=== PATIENT | male | born 1940 | race Asian ===

== ENCOUNTER 2019-09-17 12:57 | Inpatient (IN) | payer MEDICARE, MEDICAID ==
[~2019-09-17] VITALS: Ht 170.2 cm; Wt 59.8 kg
[2019-09-17 13:00] VITALS: BP 142/78
--- NOTE | 2019-09-17 13:00 | NUR ---
ED Nurse Note: Patient EMILIANO from [employer] d/t having episode of diarrhea while eating. Patient has 10/10 cramping abdominal pain. Patient denies nausea. Patient AxO x 4, no s/s of acute distress. Patient on the compounder sterile products, blood and urine sent to lab, 20 g IV started in left AC.
[2019-09-17] MEDS ORDERED: Ketorolac 30mg Inj IV ONE (13:15)
[2019-09-17] MEDS ORDERED: Omnipaque-300 100ml vial INJ PRN (13:30)
--- NOTE | 2019-09-17 13:41 | Emergency Room Report ---
History of Present Illness General Chief Complaint: Abdominal Pain Source: Patient (Markie Castillo DO) Present Illness HPI Patient presents with complaints of mid and lower abdominal pain Patient denies any vomiting however he has had diarrhea over the past 2 days denies any chest pain or shortness of breath Denies any flank pain We talked with the patient using 1 of the female German nurses Patient is only German speaking Denies any fall or trauma denies any fevers or chills Denies any recent travel (Markie Castillo DO) Allergies: Coded Allergies: No Known Allergies (Unverified , 09/17/19) Patient History Past Medical History: see triage record Reviewed Nursing Documentation: PMH: Agreed; PSxH: Agreed (Markie Castillo DO) Nursing Documentation-PMH Hx Hypertension: Yes Hx Diabetes: Yes (Markie Castillo DO) Review of Systems All Other Systems: negative except mentioned in HPI (Markie Castillo DO) Physical Exam Vital Signs Date Time Temp Pulse Resp B/P (MAP) Pulse Ox O2 Delivery O2 Flow Rate FiO2 09/17/19 12:56 97.5 54 17 142/78 (99) 99 Room Air Sp02 EP Interpretation: reviewed, normal General Appearance: thin Head: normocephalic, atraumatic Eyes: bilateral eye PERRL, bilateral eye EOMI ENT: dry mucus membranes Neck: supple Respiratory: lungs clear, no respiratory distress, no retraction Cardiovascular #1: regular rate, rhythm, no edema, no murmur Gastrointestinal: non tender - On palpation however points to the mid abdominal umbilical region for pain, soft Musculoskeletal: normal inspection Neurologic: alert, oriented x3 Skin: no rash Lymphatic: normal inspection (Markie Castillo DO) Medical Decision Making Diagnostic Impression: Primary Impression: Colitis Additional Impression: Weakness ER Course Hospital Course 79 yo M presents with abd pain, diarhea Clinical course Patient initially seen by ; please see his note for full history and physical Labs - leukocytosis noted, Hb/Hct stable. electrolytes ok. CT A/P - colitis appreciated Patient continues to have pain, diarrhea, vomiting. Given Cipro and Flagyl here in ED. Will require admission Case discussed with Dr. Campbell and he agreed to accept the patient to his service for further care and support I feel this is a highly complex case requiring extensive working including EKG/ Rhythm strip, Xray/CT/US, Blood/urine lab work, repeat exams while in ED, and administration of strong opiates/narcotics for pain control, admission to hospital or close patient follow up. Diagnosis - colitis, weakness Patient admitted to hospital in serious condition Labs Test 09/17/19 14:00 09/17/19 15:30 White Blood Count 13.0 K/UL (4.8-10.8) Red Blood Count 4.74 M/UL (4.70-6.10) Hemoglobin 15.3 G/DL (14.2-18.0) Hematocrit 45.0 % (42.0-52.0) Mean Corpuscular Volume 95 FL (80-99) Mean Corpuscular Hemoglobin 32.3 PG (27.0-31.0) Mean Corpuscular Hemoglobin Concent 34.1 G/DL (32.0-36.0) Red Cell Distribution Width 11.1 % (11.6-14.8) Platelet Count 362 K/UL (150-450) Mean Platelet Volume 8.2 FL (6.5-10.1) Neutrophils (%) (Auto) % (45.0-75.0) Lymphocytes (%) (Auto) % (20.0-45.0) Monocytes (%) (Auto) % (1.0-10.0) Eosinophils (%) (Auto) % (0.0-3.0) Basophils (%) (Auto) % (0.0-2.0) Differential Total Cells Counted 100 Neutrophils % (Manual) 93 % (45-75) Lymphocytes % (Manual) 3 % (20-45) Monocytes % (Manual) 4 % (1-10) Eosinophils % (Manual) 0 % (0-3) Basophils % (Manual) 0 % (0-2) Band Neutrophils 0 % (0-8) Platelet Estimate Adequate Platelet Morphology Normal Clumped Platelets 2+ Red Blood Cell Morphology Normal Prothrombin Time 10.2 SEC (9.30-11.50) Prothromb Time International Ratio 1.0 (0.9-1.1) Activated Partial Thromboplast Time 24 SEC (23-33) Sodium Level 139 MMOL/L (136-145) Potassium Level 3.7 MMOL/L (3.5-5.1) Chloride Level 102 MMOL/L (98-107) Carbon Dioxide Level 26 MMOL/L (21-32) Anion Gap 11 mmol/L (5-15) Blood Urea Nitrogen 36 mg/dL (7-18) Creatinine 1.1 MG/DL (0.55-1.30) Estimat Glomerular Filtration Rate > 60 mL/min (>60) Glucose Level 217 MG/DL (74-106) Calcium Level 9.9 MG/DL (8.5-10.1) Total Bilirubin 0.4 MG/DL (0.2-1.0) Aspartate Amino Transf (AST/SGOT) 17 U/L (15-37) Alanine Aminotransferase (ALT/SGPT) 27 U/L (12-78) Alkaline Phosphatase 107 U/L (46-116) Total Creatine Kinase 71 U/L (26-308) Troponin I 0.000 ng/mL (0.000-0.056) Total Protein 8.9 G/DL (6.4-8.2) Albumin 4.2 G/DL (3.4-5.0) Globulin 4.7 g/dL Albumin/Globulin Ratio 0.9 (1.0-2.7) Lipase 214 U/L (73-393) Urine Color Yellow Urine Appearance Clear Urine pH 5 (4.5-8.0) Urine Specific [place] 1.020 (1.005-1.035) Urine Protein 1+ (NEGATIVE) Urine Glucose (UA) Negative (NEGATIVE) Urine Ketones 2+ (NEGATIVE) Urine Blood 5+ (NEGATIVE) Urine Nitrite Negative (NEGATIVE) Urine Bilirubin Negative (NEGATIVE) Urine Urobilinogen Normal MG/DL (0.0-1.0) Urine Leukocyte Esterase Negative (NEGATIVE) Urine RBC 20-30 /HPF (0 - 0) Urine WBC 0-2 /HPF (0 - 0) Urine Squamous Epithelial Cells None /LPF (NONE/OCC) Urine Bacteria Occasional /HPF (NONE) (Eliezer Genao MD) CT/MRI/US Diagnostic Results CT/MRI/US Diagnostic Results : Imaging Test Ordered: CT A/P Impression Comparison: none Findings: Lack of enteric contrast limits assessment of the GI tract. There is equivocal mild wall thickening of the descending and sigmoid colon and equivocal slight increased attenuation of the immediate pericolonic fat. There is slightly increased attenuation of the presacral fat. No evidence of colonic diverticulosis or diverticulitis. The appendix is normal. No small bowel distention. No free or loculated intraperitoneal gas or fluid is evident. The distal esophagus, stomach , duodenum are unremarkable. The liver demonstrates a subcentimeter low-attenuation lesion at the tip of the right hepatic lobe. There are a few other similar lesions near the dome. The gallbladder is nondistended, unremarkable. The bile ducts are unremarkable. The pancreas, spleen, adrenals are unremarkable. The kidneys demonstrate bilateral subcentimeter low-attenuation lesions which are too small to characterize. The left kidney demonstrates a lower pole punctate calyceal calculus. There is a circumaortic left renal vein incidentally noted. No retroperitoneal or mesenteric mass or adenopathy. No pelvic mass or adenopathy. The bladder is somewhat distended. The included lung bases demonstrate minimal dependent atelectatic changes. The bones demonstrate degenerative spondylosis changes. Impression: Limited assessment of the GI tract, due to lack of enteric contrast administration Equivocal mild descending and sigmoid colon wall thickening and equivocal minimal infiltration of the pericolonic fat; if real could indicate mild colitis changes. No definite acute process otherwise Subcentimeter low-attenuation liver and renal lesions, too small to characterize , most likely benign simple cysts. No further follow-up necessary Other findings as noted, including circumaortic left renal vein, dependent pulmonary atelectatic changes, degenerative spondylosis The CT scanner at [facility] is accredited by the [employer] and the scans are performed using protocols designed to limit radiation exposure to as low as reasonably achievable to attain images of sufficient resolution adequate for diagnostic evaluation. (Eliezer Genao MD) Last Vital Signs Date Time Temp Pulse Resp B/P (MAP) Pulse Ox O2 Delivery O2 Flow Rate FiO2 09/17/19 12:56 97.5 54 17 142/78 (99) 99 Room Air (Markie Castillo DO) Status: improved (Eliezer Genao MD) Disposition: ADMITTED INPATIENT Condition: Serious Markie Castillo DO Sep 17, 2019 13:41 Eliezer Genao MD Sep 17, 2019 17:39
[2019-09-17 14:52] LABS: HEMOGLOBIN 15.3 G/DL (14.2-18.0); MEAN CORPUSCULAR VOLUME 95 FL (80-99); PLATELET COUNT 362 K/UL (150-450); RED BLOOD COUNT 4.74 M/UL (4.70-6.10); RED CELL DISTRIBUTION WIDTH 11.1 % (11.6-14.8)
[2019-09-17 15:02] LABS: ANION GAP 11 mmol/L (5-15); BLOOD UREA NITROGEN 36 mg/dL (7-18); CALCIUM 9.9 MG/DL (8.5-10.1); CARBON DIOXIDE 26 MMOL/L (21-32); CHLORIDE 102 MMOL/L (98-107); CREATININE 1.1 MG/DL (0.55-1.30); POTASSIUM 3.7 MMOL/L (3.5-5.1); SODIUM 139 MMOL/L (136-145)
[2019-09-17 15:10] LABS: ALANINE AMINOTRANSFERASE 27 U/L (12-78); ALBUMIN 4.2 G/DL (3.4-5.0); ALBUMIN/GLOBULIN RATIO 0.9 (1.0-2.7); ALKALINE PHOSPHATASE 107 U/L (46-116); ASPARTATE AMINO TRANSFERASE 17 U/L (15-37); BILIRUBIN,TOTAL 0.4 MG/DL (0.2-1.0); CREATINE KINASE 71 U/L (26-308)
[2019-09-17 15:50] LABS: APPEARANCE,URINE CLEAR; BILIRUBIN, URINE NEGATIVE (NEGATIVE); COLOR,URINE YELLOW; GLUCOSE, URINE (UA) NEGATIVE (NEGATIVE); KETONES,URINE 2+ (NEGATIVE); LEUKOCYTE ESTERASE ,URINE NEGATIVE (NEGATIVE); NITRITE,URINE NEGATIVE (NEGATIVE); PH,URINE 5 (4.5-8.0); PROTEIN,URINE 1+ (NEGATIVE); UROBILINOGEN,URINE NORMAL MG/DL (0.0-1.0)
[2019-09-17] MEDS ORDERED: Morphine Sulfate 2mg/ml Inj(IV/IM USE ONLY) IVP ONE (16:00)
[2019-09-17] MEDS ORDERED: Pantoprazole Inj IVP ONE (16:00)
--- NOTE | 2019-09-17 16:20 | NUR ---
ED Nurse Note: Patient resting in bed, diarrhea has become less severe. Patient states his abdomen feels less painful than when he arrived.
[2019-09-17 17:07] VITALS: BP 138/82
--- NOTE | 2019-09-17 17:26 | Diagnostic Imaging Report ---
Clinical Indication: Abdominal pain Technique: No oral contrast utilized, per emergency room physician request IV administration nonionic contrast. Venous phase spiral acquisition obtained through the abdomen and pelvis. Multiplanar reconstructions were generated. Total dose length product 757 mGycm. CTDIvol(s) 13 mGy. Dose reduction achieved using automated exposure control Comparison: none Findings: Lack of enteric contrast limits assessment of the GI tract. There is equivocal mild wall thickening of the descending and sigmoid colon and equivocal slight increased attenuation of the immediate pericolonic fat. There is slightly increased attenuation of the presacral fat. No evidence of colonic diverticulosis or diverticulitis. The appendix is normal. No small bowel distention. No free or loculated intraperitoneal gas or fluid is evident. The distal esophagus, stomach, duodenum are unremarkable. The liver demonstrates a subcentimeter low-attenuation lesion at the tip of the right hepatic lobe. There are a few other similar lesions near the dome. The gallbladder is nondistended, unremarkable. The bile ducts are unremarkable. The pancreas, spleen, adrenals are unremarkable. The kidneys demonstrate bilateral subcentimeter low-attenuation lesions which are too small to characterize. The left kidney demonstrates a lower pole punctate calyceal calculus. There is a circumaortic left renal vein incidentally noted. No retroperitoneal or mesenteric mass or adenopathy. No pelvic mass or adenopathy. The bladder is somewhat distended. The included lung bases demonstrate minimal dependent atelectatic changes. The bones demonstrate degenerative spondylosis changes. Impression: Limited assessment of the GI tract, due to lack of enteric contrast administration Equivocal mild descending and sigmoid colon wall thickening and equivocal minimal infiltration of the pericolonic fat; if real could indicate mild colitis changes. No definite acute process otherwise Subcentimeter low-attenuation liver and renal lesions, too small to characterize, most likely benign simple cysts. No further follow-up necessary Other findings as noted, including circumaortic left renal vein, dependent pulmonary atelectatic changes, degenerative spondylosis The CT scanner at [facility] is accredited by the [employer] and the scans are performed using protocols designed to limit radiation exposure to as low as reasonably achievable to attain images of sufficient resolution adequate for diagnostic evaluation.
--- NOTE | 2019-09-17 19:13 | NUR ---
ED Nurse Note: Handoff report given to Haley MONTEZ
[2019-09-17 19:15] VITALS: BP 140/64
--- NOTE | 2019-09-17 19:15 | NUR ---
ED Nurse Note: Report received from TC Caldwell. Pt is resting in bed at this time. No acute distress noted. VSS. Awaiting on nurse to give report and will take pt to unit. Will continue to monitor.
--- NOTE | 2019-09-17 21:08 | General Progress Note ---
Assessment/Plan Assessment/Plan: Assessment - Acute diarrhea - CT suggestive of (L) sided colitis - lower abd pain - elevated glucose - hematuria Recommendations - clear liquid diet - IV hydration - IV Cipro / Flagyl - complete stool evaluation, including C Diff - follow lab and exam Thank you Nitza Christian MD Subjective Allergies: Coded Allergies: No Known Allergies (Unverified , 09/17/19) Objective Last 24 Hour Vital Signs Date Time Temp Pulse Resp B/P (MAP) Pulse Ox O2 Delivery O2 Flow Rate FiO2 09/17/19 17:07 97.8 61 18 138/82 99 Room Air 09/17/19 16:30 97.8 09/17/19 13:00 97.5 54 17 142/78 99 Room Air 09/17/19 13:00 54 17 Room Air 09/17/19 12:56 97.5 54 17 142/78 (99) 99 Room Air Laboratory Tests 09/17/19 14:00: White Blood Count 13.0H, Red Blood Count 4.74, Hemoglobin 15.3, Hematocrit 45.0 , Mean Corpuscular Volume 95, Mean Corpuscular Hemoglobin 32.3H, Mean Corpuscular Hemoglobin Concent 34.1, Red Cell Distribution Width 11.1L, Platelet Count 362, Mean Platelet Volume 8.2, Neutrophils (%) (Auto) , Lymphocytes (%) (Auto) , Monocytes (%) (Auto) , Eosinophils (%) (Auto) , Basophils (%) (Auto) , Differential Total Cells Counted 100, Neutrophils % ( Manual) 93H, Lymphocytes % (Manual) 3L, Monocytes % (Manual) 4, Eosinophils % ( Manual) 0, Basophils % (Manual) 0, Band Neutrophils 0, Platelet Estimate Adequate, Platelet Morphology Normal, Clumped Platelets 2+, Red Blood Cell Morphology Normal, Prothrombin Time 10.2, Prothromb Time International Ratio 1.0 , Activated Partial Thromboplast Time 24, Sodium Level 139, Potassium Level 3.7 , Chloride Level 102, Carbon Dioxide Level 26, Anion Gap 11, Blood Urea Nitrogen 36H, Creatinine 1.1, Estimat Glomerular Filtration Rate > 60, Glucose Level 217H, Calcium Level 9.9, Total Bilirubin 0.4, Aspartate Amino Transf (AST/ SGOT) 17, Alanine Aminotransferase (ALT/SGPT) 27, Alkaline Phosphatase 107, Total Creatine Kinase 71, Troponin I 0.000, Total Protein 8.9H, Albumin 4.2, Globulin 4.7, Albumin/Globulin Ratio 0.9L, Lipase 214 09/17/19 15:30: Urine Color Yellow, Urine Appearance Clear, Urine pH 5, Urine Specific [place] 1.020, Urine Protein 1+H, Urine Glucose (UA) Negative, Urine Ketones 2+H, Urine Blood 5+H, Urine Nitrite Negative, Urine Bilirubin Negative, Urine Urobilinogen Normal, Urine Leukocyte Esterase Negative, Urine RBC 20-30H, Urine WBC 0-2, Urine Squamous Epithelial Cells None, Urine Bacteria Occasional Height (Feet): 5 Height (Inches): 7.00 Weight (Pounds): 150 Nitza Christian MD Sep 17, 2019 21:08
--- NOTE | 2019-09-17 21:15 | NUR ---
ED Nurse Note: Report given to TC Corona.
[2019-09-17 21:45] VITALS: BP 143/75
--- NOTE | 2019-09-17 21:50 | NUR ---
NURSE NOTES: Patient arrive on the unit from ER. Patient a/a/o x 4, speaking Estonian. Breathing unlabored on room air without distress. Verbalizes pain on the abdomen but refuses pain medication at this time. IV noted on right antecubital intact, dry, clean, and patent. Skin intact. Bed placed at the lowest with alarm, brake, and siderails up for safety. Call light placed within reach. Will continue to monitor and provide care as ordered.
--- NOTE | 2019-09-17 21:50 | NUR ---
ED Nurse Note: Pt is stable to transfer to MS unit at this time. Pt taken to unit via wheelchair by tech. Pt is in no acute distress, aaox4, ambulatory with steady gait. VSS. Pt belongings sent with pt. IV patent and intact.
--- NOTE | 2019-09-17 22:45 | NUR ---
NURSE NOTES: Received admission orders from Dr. Campbell. Orders are as followed: Discontinue all home medications, NPO except ice chips/medications, SCDs for DVT prophylaxis, Code according to what patient prefers, CBC, CMP, Consult Dr Christian and Joshua Hayes, Zofran 4mg IVP Q 6H PRN for Nausea and Vomiting, 1/2 NS @ 60mls/hr, and Tylenol 650mg PO Q4H PRN for Mild pain/ temperature above 100.5 F. Will carry out as given.
[2019-09-17] MEDS ORDERED: Morphine Sulfate 2mg/ml Inj(IV/IM USE ONLY) IVP PRN (23:15)
--- NOTE | 2019-09-17 23:15 | NUR ---
NURSE NOTES: Informed Dr. Christian regarding patient's abdominal pain. Received order for morphine 2 mg IVP Q3H PRN for pain. Will carry out the order as given. Will continue to monitor the patient.
--- NOTE | 2019-09-17 23:30 | NUR ---
NURSE NOTES: Informed and educated patient regarding pain management, but patient refuses to take pain medication at this time. Patient said pain 5-6/10 but not extreme. Patient wants to hold on the pain medication and prefers to rest at this time. Will continue to monitor and provide nonpharmacological method to assist with pain.
[2019-09-18] VITALS: BP 147/76
[2019-09-18 04:00] VITALS: BP 149/70
[2019-09-18] MEDS: NovoLOG Insulin Flexpen SUBQ SCH ×4 (06:00→21:00)
--- NOTE | 2019-09-18 07:00 | NUR ---
NURSE NOTES: Patient bleeding moderate amount of blood from the rectum whenever patient feels the urge to have bowel movement. Patient denies lightheadness, nausea, or shortness of breath. Blood pressure within patient's baseline per patient. Reached Dr. Christian regarding patient's bleeding episode from the rectum. Left a message. Will follow up and endorse to dayshift.
[2019-09-18 07:13] LABS: BASOPHILS % (AUTO) 0.4 % (0.0-2.0); EOSINOPHILS % (AUTO) 0.7 % (0.0-3.0); HEMATOCRIT 35.8 % (42.0-52.0); HEMOGLOBIN 12.4 G/DL (14.2-18.0); LYMPHOCYTES % (AUTO) 14.8 % (20.0-45.0); MEAN CORPUSCULAR VOLUME 94 FL (80-99); MONOCYTES % (AUTO) 7.3 % (1.0-10.0); NEUTROPHILS % (AUTO) 76.8 % (45.0-75.0); PLATELET COUNT 286 K/UL (150-450); RED BLOOD COUNT 3.82 M/UL (4.70-6.10); RED CELL DISTRIBUTION WIDTH 11.1 % (11.6-14.8); WHITE BLOOD COUNT 10.4 K/UL (4.8-10.8)
[2019-09-18 07:24] LABS: ALANINE AMINOTRANSFERASE 16 U/L (12-78); ALBUMIN 3.1 G/DL (3.4-5.0); ALBUMIN/GLOBULIN RATIO 0.9 (1.0-2.7); ALKALINE PHOSPHATASE 68 U/L (46-116); ANION GAP 7 mmol/L (5-15); ASPARTATE AMINO TRANSFERASE 14 U/L (15-37); BILIRUBIN,TOTAL 0.5 MG/DL (0.2-1.0); BLOOD UREA NITROGEN 19 mg/dL (7-18); CALCIUM 8.6 MG/DL (8.5-10.1); CARBON DIOXIDE 26 MMOL/L (21-32); CHLORIDE 109 MMOL/L (98-107); CREATININE 0.9 MG/DL (0.55-1.30); POTASSIUM 4.3 MMOL/L (3.5-5.1); SODIUM 142 MMOL/L (136-145)
--- NOTE | 2019-09-18 07:38 | NUR ---
HAND-OFF: Report given to TC Leavitt. Plan of care endorsed and informed about patient's rectal bleeding.
[2019-09-18 08:00] VITALS: BP 153/76
--- NOTE | 2019-09-18 11:42 | NUR ---
NURSE NOTES: pt in bed with no sob nor in any form of distress noted. still noted with moderate amount of blood. no episode of diarrhea at this time. informed pt for stool specimen. IV fluid running with no adverse reaction noted. will continue to monitor
[2019-09-18 12:00] VITALS: BP 162/79
[2019-09-18 15:21] VITALS: BP 155/78
--- NOTE | 2019-09-18 17:22 | NUR ---
CASE MANAGEMENT:INITIAL REVIEW 79 YR OLD MALE BIBA FROM HOME CC;ABDOMINAL PAIN SI;COLITIS. WEAKNESS. 97.5 54 17 142/78 99% ON RA WBC 13.0 BUN 36 BG 217 ABD/PELVIS CT - No definite acute process IS;PEPCID IV X1 ZOFRAN IV X1 TORADOL IV X1 IVF NS BOLUS X1 ADMITTED TO MED SURG MED SURG STATUS DCP;FROM HOME
--- NOTE | 2019-09-18 19:25 | NUR ---
HAND-OFF: Report given to TC Bone.
--- NOTE | 2019-09-18 19:30 | NUR ---
NURSE NOTES: Received patient in no apparent distress. A&OX4. IV site patent and intact. Bed in lowest position. Call light within reach. Will continue to monitor.
[2019-09-18 20:00] VITALS: BP 148/74
--- NOTE | 2019-09-18 20:00 | Consultation ---
DATE OF CONSULTATION: 09/18/2019 INFECTIOUS DISEASE CONSULTATION CONSULTING PHYSICIAN: Chetan Marte M.D. PRIMARY ATTENDING PHYSICIAN: Markie Campbell M.D. REASON FOR CONSULT: Colitis. HISTORY OF PRESENT ILLNESS: This is a 79-year-old male admitted yesterday. The patient states that he has mid and lower abdominal pain for two days and it become worse yesterday when he was dining in the [place] restaurant with his friend. The patient also had diarrhea and blood in it, bloody diarrhea. At the time of admission, he had leukocytosis of 13,000. PAST MEDICAL HISTORY: Diabetes and hypertension, has history of blood in his stool before, had EGD in last November, and an operation 15 years ago. ALLERGIES: No known drug allergies. MEDICATIONS: Getting insulin, Tylenol, Zofran, got a dose of Cipro and Flagyl in the ER. SOCIAL HISTORY: . No history of alcohol, drug abuse, or smoking. REVIEW OF SYSTEMS: No fever, no chills. No significant cough. No chest pain. No nausea. No vomiting, diarrhea. Lower abdominal pain. No problem passing urine. PHYSICAL EXAMINATION: VITAL SIGNS: Temperature 97.7, pulse 63, blood pressure is 155/78. GENERAL APPEARANCE: No acute distress. HEAD AND NECK: No teeth, uses denture. No oral lesion. HEART: Normal rate. LUNGS: Clear. ABDOMEN: Flat, soft. Tender in the lower areas. EXTREMITIES: No edema. NEUROLOGIC: He is awake, alert, and oriented x3. LABORATORY AND DIAGNOSTIC DATA: WBC today is 10.4, coming down from 13.1, hemoglobin 12.4, hematocrit 35.8, and platelets is 286. Sodium 142, potassium 4.3, chloride 109, bicarbonate 26, BUN 19, creatinine 0.9, glucose is 129, at time of admission was 270. Albumin is 3.1. CT scan of the abdomen and pelvis shows mild descending and sigmoid colon wall thickening and minimal infiltration of the pericolonic fat, may indicate mild colitis. IMPRESSION: 1. Mild colitis. 2. Diabetes mellitus. 3. Hypertension. 4. GI bleeding. RECOMMENDATIONS: We will follow up with stool studies. We will continue Cipro and Flagyl. At the end of my exam, I thank, Dr. Campbell, for involving me in the care of this patient. Chetan Marte M.D. DR: FLETCHER JOB#: [id number] CC: AMBER
[2019-09-18] MEDS ORDERED: FENOFIBRATE134 M1 ORAL (20:36)
[2019-09-18] MEDS ORDERED: MECLIZINE HCL25 MG ORAL (20:36)
[2019-09-18] MEDS ORDERED: BENADRYL ALLERG25 M1 PO (20:36)
[2019-09-18] MEDS ORDERED: IMODIUM2 MG ORAL (20:36)
[2019-09-18] MEDS ORDERED: ATORVASTATIN CA40 MG ORAL (20:36)
[2019-09-18] MEDS ORDERED: CREON DR 24,001 EACH PO (20:36)
[2019-09-18] MEDS ORDERED: LISINOPRIL40 MG ORAL (20:36)
[2019-09-18] MEDS ORDERED: GLUCOPHAGE XR750 MG ORAL (20:36)
[2019-09-18] MEDS ORDERED: TRAMADOL HCL50 MG ORAL (20:36)
--- NOTE | 2019-09-18 22:00 | General Progress Note ---
Assessment/Plan Assessment/Plan: Assessment - Acute diarrhea - CT suggestive of (L) sided colitis - lower abd pain - elevated glucose - hematuria Recommendations - advance diet - IV hydration - IV Cipro / Flagyl - complete stool evaluation, including C Diff - follow lab and exam Subjective Allergies: Coded Allergies: No Known Allergies (Unverified , 09/17/19) Subjective better today pain improved no BM overnight seen with French speaking RN Objective Last 24 Hour Vital Signs Date Time Temp Pulse Resp B/P (MAP) Pulse Ox O2 Delivery O2 Flow Rate FiO2 09/18/19 15:21 97.7 63 19 155/78 (103) 98 09/18/19 12:00 98.0 62 18 162/79 (106) 97 09/18/19 09:40 Room Air 09/18/19 08:00 97.8 53 18 153/76 (101) 96 09/18/19 04:00 97.6 58 16 149/70 (96) 96 09/18/19 00:00 98.0 59 16 147/76 (99) 97 09/17/19 22:18 Room Air Intake and Output 09/17/19 09/18/19 19:00 07:00 Intake Total 420 ml Output Total 2 ml Balance 418 ml Intake Oral 0 ml IV Total 420 ml Output Urine Total 2 ml # Voids 1 Laboratory Tests 09/18/19 05:55: White Blood Count 10.4, Red Blood Count 3.82L, Hemoglobin 12.4L, Hematocrit 35.8L, Mean Corpuscular Volume 94, Mean Corpuscular Hemoglobin 32.4H, Mean Corpuscular Hemoglobin Concent 34.7, Red Cell Distribution Width 11.1L, Platelet Count 286, Mean Platelet Volume 7.8, Neutrophils (%) (Auto) 76.8H, Lymphocytes (%) (Auto) 14.8L, Monocytes (%) (Auto) 7.3, Eosinophils (%) (Auto) 0.7, Basophils (%) (Auto) 0.4, Sodium Level 142, Potassium Level 4.3, Chloride Level 109H, Carbon Dioxide Level 26, Anion Gap 7, Blood Urea Nitrogen 19H, Creatinine 0.9, Estimat Glomerular Filtration Rate > 60, Glucose Level 129H, Calcium Level 8.6, Total Bilirubin 0.5, Aspartate Amino Transf (AST/SGOT) 14L, Alanine Aminotransferase (ALT/SGPT) 16, Alkaline Phosphatase 68, Total Protein 6.7, Albumin 3.1L, Globulin 3.6, Albumin/Globulin Ratio 0.9L Height (Feet): 5 Height (Inches): 7.00 Weight (Pounds): 131 Objective Elderly man NCAT supple CTA RR abd soft ND no edema Nitza Christian MD Sep 18, 2019 22:00
[2019-09-18] MEDS: metroNIDAZOLE 500mg tab ORAL SCH (22:05)
[2019-09-18] MEDS: Ciprofloxacin 500mg tab ORAL SCH (22:05)
--- NOTE | 2019-09-18 23:15 | History and Physical Report ---
DATE OF ADMISSION: 09/17/2019 HISTORY OF PRESENT ILLNESS: The patient admitted for colitis, weakness. The patient has been having syncopal episode while he was in the restaurant. Reports that he was having indigestion, but had actual syncopal episode in the bathroom. The patient also been having rectal bleeding and diarrhea. The patient has history of rectal cancer, status post surgery removal in the past. The patient also has history of peptic ulcer disease. The patient admitted for colitis. CT showed colitis. PAST MEDICAL HISTORY: Significant for hyperlipidemia, hypertension, NIDDM, peptic ulcer disease. PAST SURGICAL HISTORY: Status post removal of rectal cancer. ALLERGIES: No known allergies. FAMILY HISTORY: Noncontributory. MEDICATIONS: Lisinopril, , metformin, and tramadol p.r.n. SOCIAL HISTORY: Denies history of smoking, alcohol, or illicit drugs. REVIEW OF SYSTEMS: HEENT: Denies headaches. PULMONARY: Denies shortness of breath. Denies cough. CARDIOVASCULAR: Denies chest pain. No orthopnea. GASTROINTESTINAL: Reports indigestion, rectal bleeding, and diarrhea. Denies vomiting. EXTREMITIES: Denies pain in lower extremities. CENTRAL NERVOUS SYSTEM: Denies change in speech pattern. Feels weak. PHYSICAL EXAMINATION: VITAL SIGNS: Temperature is 98, pulse is 59, blood pressure is 147/76. HEENT: PERRLA. NECK: Supple. No lymphadenopathy. CHEST: Clear to auscultation. CARDIOVASCULAR: Regular rate and rhythm. ABDOMEN: Mildly distended. Mildly tender. No rebound. The patient is not in acute distress. Positive bowel sounds. No organomegaly. EXTREMITIES: No edema. Moves all four extremities. Sensory intact to light touch. Reflexes equal on both sides. LABORATORY DATA: WBC of 13, hemoglobin 15.3, platelets 262. Sodium 139, potassium 3.7, BUN of 36, creatinine 1.1. ASSESSMENT AND PLAN: Colitis, syncope, rectal bleeding, most likely due to colitis. I have consulted basically Dr. Chetan Marte and Dr. Christian for the management of the colitis. Antibiotics per Dr. Chetan Marte. Markie Campbell M.D. DR: APRIL JOB#: [id number] CC:
[2019-09-19] VITALS: BP 144/83
[2019-09-19 04:00] VITALS: BP 144/74
[2019-09-19] MEDS: metroNIDAZOLE 500mg tab ORAL SCH ×3 (06:04→21:33)
[2019-09-19] MEDS: NovoLOG Insulin Flexpen SUBQ SCH ×4 (06:27→21:31)
--- NOTE | 2019-09-19 07:14 | NUR ---
HAND-OFF: Report given to Vashti Gray RN.
--- NOTE | 2019-09-19 07:46 | NUR ---
NURSE NOTES: pt in bed with no sob nor in any form of distress noted. Breathing regular and unlabored. denies any pain at this time. on iv fluid with no adverse reaction noted. Will continue to monitor
[2019-09-19 08:00] VITALS: BP 141/74
[2019-09-19] MEDS: Ciprofloxacin 500mg tab ORAL SCH ×2 (08:41→21:30)
[2019-09-19 12:00] VITALS: BP 137/76
--- NOTE | 2019-09-19 13:48 | Infectious Diseases Prog Note ---
Assessment/Plan Assessment/Plan IMPRESSION: 1. Mild colitis. 2. Diabetes mellitus. 3. Hypertension. 4. GI bleeding. RECOMMENDATIONS: We will follow up with stool studies. We will continue Cipro and Flagyl. Subjective ROS Limited/Unobtainable: Yes Constitutional: Reports: no symptoms Respiratory: Reports: no symptoms Gastrointestinal/Abdominal: Reports: no symptoms Genitourinary: Reports: no symptoms Allergies: Coded Allergies: No Known Allergies (Unverified , 09/17/19) Objective Vital Signs Last 24 Hour Vital Signs Date Time Temp Pulse Resp B/P (MAP) Pulse Ox O2 Delivery O2 Flow Rate FiO2 09/19/19 09:53 Room Air 09/19/19 08:00 97.6 64 18 141/74 (96) 97 09/19/19 04:00 97.4 56 18 144/74 (97) 97 09/19/19 00:00 98.6 60 18 144/83 (103) 100 09/18/19 21:00 Room Air 09/18/19 20:00 97.4 56 19 148/74 (98) 96 09/18/19 15:21 97.7 63 19 155/78 (103) 98 Height (Feet): 5 Height (Inches): 7.00 Weight (Pounds): 131 General Appearance: no acute distress HEENT: mucous membranes moist Respiratory/Chest: lungs clear Cardiovascular: normal rate Abdomen: soft, non tender Extremities: no edema Neurologic/Psychiatric: alert, responsive Current Medications Medications (Trade) Dose Ordered Sig/Anne Route PRN Reason Start Time Stop Time Status Last Admin Dose Admin Acetaminophen (Tylenol) 650 mg Q4H PRN ORAL Mild Pain/Temp > 100.5 09/17/19 23:00 10/17/19 22:59 Ciprofloxacin (Cipro 500mg tab) 500 mg EVERY 12 HOURS ORAL 09/18/19 21:00 09/25/19 20:59 09/19/19 08:41 Dextrose (Dextrose 50%) 25 ml Q30M PRN IV Hypoglycemia 09/18/19 00:15 10/18/19 00:14 Dextrose (Dextrose 50%) 50 ml Q30M PRN IV Hypoglycemia 09/18/19 00:15 10/18/19 00:14 Insulin Aspart (NovoLOG) BEFORE MEALS AND HS SUBQ 09/18/19 06:30 10/18/19 06:29 09/19/19 13:17 Metronidazole (Flagyl) 500 mg Q8HR ORAL 09/18/19 22:00 09/25/19 21:59 09/19/19 13:15 Morphine Sulfate (Morphine Sulfate) 2 mg Q3H PRN IVP For Pain 09/17/19 23:15 09/24/19 23:14 Ondansetron HCl (Zofran) 4 mg Q6H PRN IVP Nausea & Vomiting 09/18/19 03:00 10/18/19 02:59 Sodium Chloride 1,000 ml @ 60 mls/hr [id number] IV 09/17/19 23:00 10/17/19 22:59 09/19/19 08:41 Chetan Marte MD Sep 19, 2019 13:48
--- NOTE | 2019-09-19 14:19 | NUR ---
DISCHARGE BARRIERS: PATIENT IS DISCHARGE BACK TO [facility] STATED PATIENT NEEDS A PICC LINE TO CONT IV ABX FOR [address] HUNTER WAITING FOR RESPONSE
[2019-09-19 16:00] VITALS: BP 141/77
--- NOTE | 2019-09-19 19:36 | NUR ---
HAND-OFF: Report given to TC Bone.
--- NOTE | 2019-09-19 19:37 | NUR ---
NURSE NOTES: Received patient in no apparent distress. A&OX4. IV site patent and intact. Per patient, no more rectal bleeding. Bed in lowest position. Call light within reach. Will continue to monitor.
[2019-09-19 20:00] VITALS: BP 169/87
--- NOTE | 2019-09-19 20:54 | NUR ---
NURSE NOTES: Call and left message to Dr. Campbell regarding BP 169/87. Waiting a call back.
--- NOTE | 2019-09-19 21:08 | General Progress Note ---
Assessment/Plan Problem List: (1) Weakness ICD Codes: R53.1 - Weakness SNOMED: 31099134 (2) Colitis ICD Codes: K52.9 - Noninfective gastroenteritis and colitis, unspecified SNOMED: 31781174 Status: progressing Assessment/Plan: afebrile colitis decrease in abdominal pain no diarrhea Subjective ROS Limited/Unobtainable: Yes Allergies: Coded Allergies: No Known Allergies (Unverified , 09/17/19) Objective Last 24 Hour Vital Signs Date Time Temp Pulse Resp B/P (MAP) Pulse Ox O2 Delivery O2 Flow Rate FiO2 09/19/19 20:00 97.9 63 20 169/87 (114) 98 09/19/19 16:00 97.7 59 18 141/77 (98) 100 09/19/19 12:00 97.9 61 18 137/76 (96) 97 09/19/19 09:53 Room Air 09/19/19 08:00 97.6 64 18 141/74 (96) 97 09/19/19 04:00 97.4 56 18 144/74 (97) 97 09/19/19 00:00 98.6 60 18 144/83 (103) 100 Intake and Output 09/18/19 09/19/19 19:00 07:00 Intake Total 1170 ml 660 ml Output Total 4 ml 480 ml Balance 1166 ml 180 ml Intake Oral 450 ml IV Total 720 ml 660 ml Output Urine Total 4 ml 480 ml # Voids 2 Height (Feet): 5 Height (Inches): 7.00 Weight (Pounds): 131 Cardiovascular: regular rhythm Respiratory/Chest: lungs clear Abdomen: soft Markie Campbell MD Sep 19, 2019 21:08
--- NOTE | 2019-09-19 21:49 | General Progress Note ---
Assessment/Plan Status: progressing Assessment/Plan: Assessment - Acute diarrhea - CT suggestive of (L) sided colitis - lower abd pain - elevated glucose - hematuria Recommendations - advance diet - IV hydration - IV Cipro / Flagyl - complete stool evaluation, including C Diff - follow lab and exam Subjective Allergies: Coded Allergies: No Known Allergies (Unverified , 09/17/19) Subjective better today pain improved no BM overnight Objective Last 24 Hour Vital Signs Date Time Temp Pulse Resp B/P (MAP) Pulse Ox O2 Delivery O2 Flow Rate FiO2 09/19/19 20:00 97.9 63 20 169/87 (114) 98 09/19/19 16:00 97.7 59 18 141/77 (98) 100 09/19/19 12:00 97.9 61 18 137/76 (96) 97 09/19/19 09:53 Room Air 09/19/19 08:00 97.6 64 18 141/74 (96) 97 09/19/19 04:00 97.4 56 18 144/74 (97) 97 09/19/19 00:00 98.6 60 18 144/83 (103) 100 Intake and Output 09/18/19 09/19/19 19:00 07:00 Intake Total 1170 ml 660 ml Output Total 4 ml 480 ml Balance 1166 ml 180 ml Intake Oral 450 ml IV Total 720 ml 660 ml Output Urine Total 4 ml 480 ml # Voids 2 Height (Feet): 5 Height (Inches): 7.00 Weight (Pounds): 131 Objective Elderly man NCAT supple CTA RR abd soft ND no edema Nitza Christian MD Sep 19, 2019 21:49
--- NOTE | 2019-09-19 22:06 | NUR ---
NURSE NOTES: Obtained Novasc 5mg oral daily order from Dr. Campbell.
[2019-09-20] VITALS: BP 137/66
[2019-09-20 04:00] VITALS: BP 139/76
[2019-09-20] MEDS: metroNIDAZOLE 500mg tab ORAL SCH ×3 (06:07→21:10)
[2019-09-20] MEDS: NovoLOG Insulin Flexpen SUBQ SCH ×4 (06:07→21:11)
--- NOTE | 2019-09-20 07:30 | NUR ---
HAND-OFF: Report given to Mary Ann MONTEZ.
[2019-09-20 08:00] VITALS: BP 161/77
[2019-09-20] MEDS: Ciprofloxacin 500mg tab ORAL SCH ×2 (09:09→21:10)
--- NOTE | 2019-09-20 10:21 | NUR ---
NURSE NOTES: Contacted Dr. Christian to ask for OB stool and C Diff toxin order, sample has been collect, stated in his note, but no order in system
--- NOTE | 2019-09-20 11:15 | Infectious Diseases Prog Note ---
Assessment/Plan Assessment/Plan IMPRESSION: 1. Mild colitis. 2. Diabetes mellitus. 3. Hypertension. 4. GI bleeding. RECOMMENDATIONS: We will continue Cipro and Flagyl until tonight Subjective ROS Limited/Unobtainable: No Constitutional: Reports: no symptoms Respiratory: Reports: no symptoms Gastrointestinal/Abdominal: Reports: no symptoms Genitourinary: Reports: no symptoms Allergies: Coded Allergies: No Known Allergies (Unverified , 09/17/19) Objective Vital Signs Last 24 Hour Vital Signs Date Time Temp Pulse Resp B/P (MAP) Pulse Ox O2 Delivery O2 Flow Rate FiO2 09/20/19 09:09 68 161/77 09/20/19 09:00 Room Air 09/20/19 08:00 98.1 68 17 161/77 (105) 100 09/20/19 04:00 98.1 56 18 139/76 (97) 97 09/20/19 00:00 97.5 65 18 137/66 (89) 96 09/19/19 21:00 Room Air 09/19/19 20:00 97.9 63 20 169/87 (114) 98 09/19/19 16:00 97.7 59 18 141/77 (98) 100 09/19/19 12:00 97.9 61 18 137/76 (96) 97 Height (Feet): 5 Height (Inches): 7.00 Weight (Pounds): 131 General Appearance: no acute distress HEENT: mucous membranes moist Respiratory/Chest: lungs clear Cardiovascular: normal rate Abdomen: soft, non tender Extremities: no edema Neurologic/Psychiatric: alert, oriented x 3, responsive Current Medications Medications (Trade) Dose Ordered Sig/Anne Route PRN Reason Start Time Stop Time Status Last Admin Dose Admin Acetaminophen (Tylenol) 650 mg Q4H PRN ORAL Mild Pain/Temp > 100.5 09/17/19 23:00 10/17/19 22:59 Amlodipine Besylate (Norvasc) 5 mg DAILY ORAL 09/20/19 09:00 10/20/19 08:59 09/20/19 09:09 Ciprofloxacin (Cipro 500mg tab) 500 mg EVERY 12 HOURS ORAL 09/18/19 21:00 09/25/19 20:59 09/20/19 09:09 Dextrose (Dextrose 50%) 25 ml Q30M PRN IV Hypoglycemia 09/18/19 00:15 10/18/19 00:14 Dextrose (Dextrose 50%) 50 ml Q30M PRN IV Hypoglycemia 09/18/19 00:15 10/18/19 00:14 Insulin Aspart (NovoLOG) BEFORE MEALS AND HS SUBQ 09/18/19 06:30 10/18/19 06:29 09/19/19 21:31 Metronidazole (Flagyl) 500 mg Q8HR ORAL 09/18/19 22:00 09/25/19 21:59 09/20/19 06:07 Morphine Sulfate (Morphine Sulfate) 2 mg Q3H PRN IVP For Pain 09/17/19 23:15 09/24/19 23:14 Ondansetron HCl (Zofran) 4 mg Q6H PRN IVP Nausea & Vomiting 09/18/19 03:00 10/18/19 02:59 Sodium Chloride 1,000 ml @ 60 mls/hr [id number] IV 09/17/19 23:00 10/17/19 22:59 09/20/19 01:07 Chetan Marte MD Sep 20, 2019 11:14
[2019-09-20 12:00] VITALS: BP 153/72
--- NOTE | 2019-09-20 13:03 | NUR ---
RD ASSESSMENT & RECOMMENDATIONS SEE CARE ACTIVITY FOR COMPLETE ASSESSMENT DAILY ESTIMATED NEEDS: Needs based on Cardiac 59.5kg 25-30 kcals/kg 6775-6696 total kcals 1-1.2 g protein/kg 60-71 g total protein 25-30 mL/kg 5830-8894 total fluid mLs NUTRITION DIAGNOSIS: Altered nutrition related lab values r/t clinical status, possible h/o DM, as evidenced by elev BG (129-217) CURRENT DIET: cardiac PO DIET RECOMMENDATIONS: Low Na/ Low Fiber diet/ texture as tolerated ADDITIONAL RECOMMENDATIONS: 1) Obtain a standing scale wt as able 2) rec HgA1C for eval 3) Monitor tolerance to diet 4) Check lytes w/ loose stool
--- NOTE | 2019-09-20 13:32 | NUR ---
CASE MANAGEMENT:DISCHARGE PLANNING PATIENT HAS BEEN REFERRED TO [facility] PER DR PARKER P: [phone] F: [phone] Addendum: 09/20/19 at 1625 by DANUTA VILLARREAL LVN LVN PATIENT REFUSED SNF PLACEMENT. WANTS TO RETURN HOME UPON DISCHARGE. GAVE ORDER TO DC HOME WITH [facility]. ALL CLINICALS FAXED TO [facility] P: [phone] F: [phone]
--- NOTE | 2019-09-20 14:17 | NUR ---
NURSE NOTES: RN spoke with pt via RN interpretor, Sebastián, as [employer] interpetor phone does not work in pt rooms, regarding DC to SNF [facility] for 4 days of abx. PT refusing to go to SNF stating "no, I do not want to go, I want to go home." RN explained that it will be for a short stay to finish 4 days of abx, but pt continued to refuse. RN notified Dr. Campbell. stated pt needs to be DC home with Home Health and to obtain abx orders from ID
--- NOTE | 2019-09-20 14:38 | NUR ---
NURSE NOTES: Called Dr. Douglas Marte to confirm pt does not need to continue Abx past this evening as stated in his note
[2019-09-20 16:00] VITALS: BP 151/74
--- NOTE | 2019-09-20 18:11 | General Progress Note ---
Assessment/Plan Status: progressing Assessment/Plan: Assessment - Acute diarrhea - resolved - CT suggestive of (L) sided colitis - lower abd pain - resolved - elevated glucose - hematuria Recommendations - push po - IV hydration - IV Cipro / Flagyl - complete stool evaluation, including C Diff - follow lab and exam Subjective Allergies: Coded Allergies: No Known Allergies (Unverified , 09/17/19) Subjective better today pain improved no BM overnight Objective Last 24 Hour Vital Signs Date Time Temp Pulse Resp B/P (MAP) Pulse Ox O2 Delivery O2 Flow Rate FiO2 09/20/19 16:00 98.5 60 17 151/74 (99) 92 09/20/19 12:00 97.9 62 18 153/72 (99) 98 09/20/19 09:09 68 161/77 09/20/19 09:00 Room Air 09/20/19 08:00 98.1 68 17 161/77 (105) 100 09/20/19 04:00 98.1 56 18 139/76 (97) 97 09/20/19 00:00 97.5 65 18 137/66 (89) 96 09/19/19 21:00 Room Air 09/19/19 20:00 97.9 63 20 169/87 (114) 98 Intake and Output 09/19/19 09/20/19 19:00 07:00 Intake Total 1060 ml 660 ml Balance 1060 ml 660 ml IV Total 60 ml 300 ml Other 1000 ml 360 ml # Voids 2 Laboratory Tests 09/20/19 11:30: Stool Occult Blood [Pending] Height (Feet): 5 Height (Inches): 7.00 Weight (Pounds): 131 Objective Elderly man NCAT supple CTA RR abd soft ND no edema Nitza Christian MD Sep 20, 2019 18:11
--- NOTE | 2019-09-20 19:28 | NUR ---
HAND-OFF: Report given to TC Hill. PT in bed, stable.
[2019-09-20 20:00] VITALS: BP 149/79
--- NOTE | 2019-09-20 20:43 | NUR ---
NURSE NOTES: Received patient awake, alert, verbal, resting in bed comfortably without complaints.
[2019-09-21 04:00] VITALS: BP 140/70
[2019-09-21] MEDS: NovoLOG Insulin Flexpen SUBQ SCH ×4 (06:07→20:46)
[2019-09-21] MEDS: metroNIDAZOLE 500mg tab ORAL SCH ×3 (06:07→20:45)
--- NOTE | 2019-09-21 07:23 | NUR ---
HAND-OFF: Report given to Hermann Collado RN.
--- NOTE | 2019-09-21 07:53 | NUR ---
NURSE NOTES: received report from TC Hill. patient in bed. A&Ox4, verbally responsive. no respiratory distress noted. no pain at this time. IV on RAC 20g running 1/2NS @60 skin intact. ambulatory. bed in the lowest position and locked. call light within reach. will continue to provide plan of care.
[2019-09-21 08:00] VITALS: BP 155/79
[2019-09-21] MEDS: Ciprofloxacin 500mg tab ORAL SCH ×2 (08:43→20:45)
[2019-09-21 12:00] VITALS: BP 158/78
--- NOTE | 2019-09-21 15:41 | General Progress Note ---
Assessment/Plan Problem List: (1) Weakness ICD Codes: R53.1 - Weakness SNOMED: 13076729 (2) Colitis ICD Codes: K52.9 - Noninfective gastroenteritis and colitis, unspecified SNOMED: 91096134 Status: progressing Assessment/Plan: afebrile colitis dc if id cleared no acute events' Subjective ROS Limited/Unobtainable: Yes Constitutional: Reports: no symptoms HEENT: Reports: no symptoms Allergies: Coded Allergies: No Known Allergies (Unverified , 09/17/19) Objective Last 24 Hour Vital Signs Date Time Temp Pulse Resp B/P (MAP) Pulse Ox O2 Delivery O2 Flow Rate FiO2 09/21/19 12:00 97.6 62 18 158/78 (104) 97 09/21/19 09:00 Room Air 09/21/19 08:43 67 155/79 09/21/19 08:00 98.6 67 17 155/79 (104) 100 09/21/19 06:42 97.2 09/21/19 04:00 97.2 60 18 140/70 (93) 94 09/20/19 21:00 Room Air 09/20/19 20:00 97.3 63 18 149/79 (102) 96 09/20/19 16:00 98.5 60 17 151/74 (99) 92 Intake and Output 09/20/19 09/21/19 19:00 07:00 Intake Total 1060 ml 1100 ml Output Total 400 ml Balance 660 ml 1100 ml Intake Oral 320 ml IV Total 60 ml 780 ml Other 1000 ml Stool Total 400 ml # Voids 5 # Bowel Movements 1 Height (Feet): 5 Height (Inches): 7.00 Weight (Pounds): 131 Neck: supple Cardiovascular: normal rate Respiratory/Chest: lungs clear Markie Campbell MD Sep 21, 2019 15:41
[2019-09-21 16:00] VITALS: BP 160/79
--- NOTE | 2019-09-21 16:36 | NUR ---
NURSE NOTES: received call Dr. quan. patient can dc home tomorrow. Patient is aware. son, Raj will picker/puller patient around 11am tomorrow. CM sent documents to [facility] for f/u care.
--- NOTE | 2019-09-21 16:42 | General Progress Note ---
Assessment/Plan Status: progressing Assessment/Plan: Assessment - Acute diarrhea - resolved - CT suggestive of (L) sided colitis - lower abd pain - resolved - elevated glucose - hematuria Recommendations - push po - IV hydration - IV Cipro / Flagyl - c diff (-) - follow lab and exam Subjective Allergies: Coded Allergies: No Known Allergies (Unverified , 09/17/19) Subjective better today no abd pain tolerating PO Objective Last 24 Hour Vital Signs Date Time Temp Pulse Resp B/P (MAP) Pulse Ox O2 Delivery O2 Flow Rate FiO2 09/21/19 12:00 97.6 62 18 158/78 (104) 97 09/21/19 09:00 Room Air 09/21/19 08:43 67 155/79 09/21/19 08:00 98.6 67 17 155/79 (104) 100 09/21/19 06:42 97.2 09/21/19 04:00 97.2 60 18 140/70 (93) 94 09/20/19 21:00 Room Air 09/20/19 20:00 97.3 63 18 149/79 (102) 96 Intake and Output 09/20/19 09/21/19 19:00 07:00 Intake Total 1060 ml 1100 ml Output Total 400 ml Balance 660 ml 1100 ml Intake Oral 320 ml IV Total 60 ml 780 ml Other 1000 ml Stool Total 400 ml # Voids 5 # Bowel Movements 1 Height (Feet): 5 Height (Inches): 7.00 Weight (Pounds): 131 Objective Elderly man NCAT supple CTA RR abd soft ND no edema Nitza Christian MD Sep 21, 2019 16:42
--- NOTE | 2019-09-21 19:09 | NUR ---
HAND-OFF: Report given to TC Hill.
--- NOTE | 2019-09-21 19:35 | NUR ---
NURSE NOTES: Received patient comfortably resting in bed without complaints.
[2019-09-21 20:00] VITALS: BP 149/78
[2019-09-22 00:31] VITALS: BP 135/75
[2019-09-22 04:17] VITALS: BP 140/76
[2019-09-22] MEDS: metroNIDAZOLE 500mg tab ORAL SCH (06:11)
[2019-09-22] MEDS: NovoLOG Insulin Flexpen SUBQ SCH (06:12)
--- NOTE | 2019-09-22 07:29 | NUR ---
HAND-OFF: Report given to Darline Mcnair RN.
--- NOTE | 2019-09-22 07:53 | NUR ---
NURSE NOTES: Patient alert x4; on room air, no sing of distress and shortness of breath; no sing of chest pain; urinal within reach; IV Right AC 20G 1/2NS 60cc; side rails up x2, breaks engaged, bed at lowest position; call light within reach; will keep monitoring.
[2019-09-22 08:00] VITALS: BP 150/86
[2019-09-22 08:41] VITALS: BP 150/86
[2019-09-22] MEDS: Ciprofloxacin 500mg tab ORAL SCH (08:41)
--- NOTE | 2019-09-22 09:48 | NUR ---
NURSE NOTES: I called MD Douglas Marte to get anti biotics order; MD Douglas Marte said no anti-biotics upon discharge.
--- NOTE | 2019-09-22 11:00 | NUR ---
NURSE NOTES: Patient discharge back to home; patient accompanied by family member upon discharge; Iv access and name tag removed upon discharge; belonging lists singed by patient and primary nurse; patient teaching provided regarding discharge medications and side effects; patient was stable upon discharge; patient left the floor ambulating;
--- NOTE | 2019-09-22 11:34 | General Progress Note ---
Assessment/Plan Status: progressing Assessment/Plan: Assessment - Acute diarrhea - resolved - CT suggestive of (L) sided colitis - lower abd pain - resolved - elevated glucose - hematuria Recommendations - push po - IV hydration - IV Cipro / Flagyl - c diff (-) - follow lab and exam Subjective Allergies: Coded Allergies: No Known Allergies (Unverified , 09/17/19) Subjective better today no abd pain tolerating PO Objective Last 24 Hour Vital Signs Date Time Temp Pulse Resp B/P (MAP) Pulse Ox O2 Delivery O2 Flow Rate FiO2 09/22/19 09:00 Room Air 09/22/19 08:41 68 150/86 09/22/19 08:00 98.7 68 20 150/86 (107) 99 09/22/19 04:17 97.7 80 17 140/76 (97) 99 09/22/19 00:31 97.7 70 16 135/75 (95) 98 09/21/19 21:33 Room Air 09/21/19 20:00 97.5 62 15 149/78 (101) 98 09/21/19 16:00 97.8 66 18 160/79 (106) 97 09/21/19 12:00 97.6 62 18 158/78 (104) 97 Intake and Output 09/21/19 09/22/19 19:00 07:00 Intake Total 1500 ml 720 ml Balance 1500 ml 720 ml IV Total 600 ml 720 ml Other 900 ml # Voids 2 Height (Feet): 5 Height (Inches): 7.00 Weight (Pounds): 131 Objective Elderly man NCAT supple CTA RR abd soft ND no edema Nitza Christian MD Sep 22, 2019 11:34
--- NOTE | 2019-09-24 11:07 | Discharge Summary ---
Discharge Summary Discharge Summary _ DATE OF ADMISSION: 09/17/2019 DATE OF DISCHARGE: 09/22/2019 DISCHARGED BY: Dr. Campbell REASON FOR ADMISSION: 79 years old male with past medical history of diabetes mellitus, hypertension, presented with mid and lower abdominal pain for 2 days, which became progressively worse after dining in the restaurant with his friend. Patient reported bloody diarrhea and came to emergency room for further evaluation and management. Upon evaluation patient was bradycardic with heart rate 54 , no fevers. Laboratory work-up revealed mild leukocytosis WBC 13, stable hemoglobin, hematocrit and platelet count. Stable electrolytes. BUN 36, creatinine 1.1. Glucose 217. Anion gap 11. Troponin negative. LFT and lipase within normal limits. Urinalysis revealed no evidence of urinary tract infection, but showed hematuria . CT scan of the abdomen and pelvis demonstrated findings suggestive of mild colitis. No definite acute process otherwise. Patient subsequently admitted for further management. CONSULTANTS: ID specialist Dr. Marte GI specialist Dr. Christian [facility] COURSE: Patient admitted to medical surgical floor. GI specialist and ID specialist followed. Patient started on IV fluids and clear liquid diet. Patient received empiric antibiotics as per ID specialist recommendation. Stool for C. difficile was negative. Symptomatic treatment provided . Blood pressure was managed with calcium channel rios. Pain management was addressed as needed. GI prophylaxis provided. Leukocytosis resolved the next day. Stool for occult blood was negative. Blood sugar remained stable. Hemoglobin and hematocrit remained stable ; last hemoglobin 12.4, hematocrit 25.8. Patient clinically stabilized. Diarrhea resolved. Lower abdominal pain resolved. Hemoglobin hematocrit stable. ID specialist cleared patient for discharge. Patient was stable for discharge home with home health services to follow FINAL DIAGNOSES: Acute diarrhea -resolved Mild left-sided colitis Lower abdominal pain -resolved Diabetes mellitus Hypertension DISCHARGE MEDICATIONS: See Medication Reconciliation list. DISCHARGE INSTRUCTIONS: Patient was discharged home with home health services. Follow up with primary care provider in one week. I have been assigned to dictate discharge summary for this account. I was not involved in the patient's management. Janey Ellington NP Sep 24, 2019 11:07
== END 2019-09-22 11:10 | disposition home health service (06) | DRG 392 ==
LOC: EDBD 12:57 → EMR 15:11 → 4E 15:27 → EDBEDREQ 20:17 → 4E 09-20 06:35
DX: K52.9 Noninfective gastroenteritis and colitis, unspecified (principal); K62.5 Hemorrhage of anus and rectum; R53.1 Weakness; I10 Essential (primary) hypertension; Z85.048 Personal history of other malignant neoplasm of rectum, rectosigmoid junction, and anus; E78.5 Hyperlipidemia, unspecified; E11.9 Type 2 diabetes mellitus without complications; Z79.4 Long term (current) use of insulin; R31.9 Hematuria, unspecified
CPT/HCPCS: 36415; 74177; 80053; 81003; 82270; 82550; 82962; 83690; 84484; 85007; 85025; 85610; 85730; 87324; 93005; 96361; 96365; 96368; 96375; 99285; J1815; J2405; J7030